=== PATIENT | male | born 1960 | race Caucasian/White ===

== ENCOUNTER → 2017-11-28 16:50 | Outpatient (REF) | payer MEDICAID, SELFPAY ==
[2017-11-28 20:04] LABS: ALT 81 U/L (12-78); AST 71 U/L (15-37); Albumin 3.6 g/dL (3.4-5.0); Alkaline Phosphatase 73 U/L (46-116); Anion Gap 7.6 mmol/L (3-11); BUN 9 mg/dL (7-18); Bilirubin, Total 0.3 mg/dL (0.2-1.0); CO2 27.4 mmol/L (21.0-32.0); CREATININE 0.96 mg/dL (0.70-1.30); Chloride 104 mmol/L (98-107); Glucose 100 mg/dL (70-100); Potassium 4.6 mmol/L (3.5-5.1); Sodium 139 mmol/L (136-145); Total Protein 7.6 g/dL (6.4-8.2)
== END ==
LOC: NCHCN 16:50
PROVIDERS: PCP Internal Medicine; Visit Provider Physician Assistant Medical
DX: R60.9 Edema, unspecified (principal); Z87.898 Personal history of other specified conditions
CPT/HCPCS: 80053

== ENCOUNTER 2017-12-16 15:53 | Outpatient (REF) | payer MEDICAID, SELFPAY ==
[2017-12-16 19:37] LABS: Iron 79 ug/dL (50-175); Total Iron Binding Capacity 325 ug/dL (250-450); Transferrin Sat 24 % (20-55)
[2017-12-16 19:48] LABS: Ferritin 222 ng/mL (8-388)
[2017-12-18 10:23] LABS: Hepatitis C Ab w Rflx HCV PCR Reactive (NEGAT)
== END 2017-12-16 16:13 ==
LOC: NCHCN 15:53
PROVIDERS: PCP Internal Medicine; Visit Provider Internal Medicine
DX: R60.9 Edema, unspecified (principal); I48.2 Chronic atrial fibrillation; F41.1 Generalized anxiety disorder; M17.9 Osteoarthritis of knee, unspecified; K76.0 Fatty (change of) liver, not elsewhere classified
CPT/HCPCS: 86803; 82728; 83540; 83550; 87522

== ENCOUNTER 2019-01-07 15:13 | Outpatient (REF) | payer MEDICAID, SELFPAY ==
[2019-01-07 20:21] LABS: HCT 42.9 % (40.0-50.0); HGB 14.5 g/dL (13.5-17.5); Mean Corp. HGB Concentration 33.8 g/dL (32.0-36.0); Mean Corpuscular Hemoglobin 31.2 pg (27.0-33.0); Mean Corpuscular Volume 92.3 fL (80-95); Mean Platelet Volume 11.3 fL (8.0-11.0); Platelet Count 235 x1000/uL (130-400); RBC 4.65 m/cumm (4.50-6.00); RBC Distribution Width 14.5 % (11.8-14.1); White Blood Cell Count 10.52 k/cumm (4.4-10.8)
[2019-01-07 20:45] LABS: ALT 73 U/L (16-63); AST 57 U/L (15-37); Alkaline Phosphatase 58 U/L (46-116); Anion Gap 12.2 mmol/L (3-11); BUN 15 mg/dL (7-18); Bilirubin, Total 0.2 mg/dL (0.2-1.0); CO2 24.8 mmol/L (21.0-32.0); CREATININE 1.57 mg/dL (0.70-1.30); Calcium 9.7 mg/dL (8.5-10.1); Chloride 102 mmol/L (98-107); Glucose 144 mg/dL (70-100); LDL CHOLESTEROL 146 mg/dL (<100); Potassium 4.3 mmol/L (3.5-5.1); Sodium 139 mmol/L (136-145); TSH 3.57 uIU/mL (0.36-3.74); Total Protein 8.1 g/dL (6.4-8.2)
[2019-01-09 10:13] LABS: HIV-1/2 Ag & Ab Screen Negative (NEGAT)
== END 2019-01-07 15:33 ==
LOC: NCHCN 15:13
PROVIDERS: PCP Internal Medicine; Visit Provider Internal Medicine
DX: B19.20 Unspecified viral hepatitis C without hepatic coma (principal); Z00.00 Encounter for general adult medical examination without abnormal findings; Z11.4 Encounter for screening for human immunodeficiency virus [HIV]
CPT/HCPCS: 80053; 83721; 85027; 86803; 87389; 84443; 87522

== ENCOUNTER 2021-08-14 20:43 | Outpatient (REF) | payer MEDICAID, SELFPAY ==
[2021-08-14 22:14] LABS: HGB 14.2 g/dL (13.5-17.5); MCH 30.9 pg (27.0-33.0); MCHC 32.3 % (32.0-36.0); MCV 96 fL (80-95); Platelet Count 248 10^3/uL (130-400); RDW 12.7 % (11.8-14.1); RDW-SD 45.1 fL; WBC 12.31 10^3/uL (4.4-10.8)
[2021-08-14 22:32] LABS: ALT 28 U/L (16-63); AST 25 U/L (15-37); Alkaline Phosphatase 64 U/L (46-116); Anion Gap 8.9 mmol/L (3-11); BUN 16 mg/dL (7-18); Bilirubin, Total 0.3 mg/dL (0.2-1.0); CO2 29.1 mmol/L (21.0-32.0); CREATININE 1.2 mg/dL (0.70-1.30); Calcium 10.5 mg/dL (8.5-10.1); Calculated LDL 135 mg/dL (<100); Chloride 103 mmol/L (98-107); Cholesterol 228 mg/dL (<200); Glucose 98 mg/dL (74-106); HDL Cholesterol 44 mg/dL (40-60); Potassium 4.3 mmol/L (3.5-5.1); Sodium 141 mmol/L (136-145); Total Protein 8.1 g/dL (6.4-8.2); Triglyceride 249 mg/dL (<150)
[2021-08-16 12:26] LABS: Hepatitis C Ab w Rflx HCV PCR Reactive (Negative)
[2021-08-17 13:15] LABS: HCV RNA Detection Quantitative 5690000 IU/mL (Undetected); HCV RNA Qualitative Detected (Undetected)
== END 2021-08-14 20:44 | disposition home or self-care (01) ==
LOC: NCHCN 20:43
PROVIDERS: PCP Internal Medicine; Visit Provider Nurse Practitioner Family
DX: B19.20 Unspecified viral hepatitis C without hepatic coma (principal)
CPT/HCPCS: 80053; 80061; 85027; 86803; 87522

== ENCOUNTER 2022-08-20 16:26 | Outpatient (REF) | payer MEDICAID, SELFPAY ==
[2022-08-20 20:01] LABS: HCT 41.5 % (40.0-50.0); HGB 13.9 g/dL (13.5-17.5); MCH 31.1 pg (27.0-33.0); MCHC 33.5 % (32.0-36.0); MCV 93 fL (80-95); MPV 10.4 fL (8.0-11.0); Platelet Count 214 10^3/uL (130-400); RBC 4.47 10^6/uL (4.36-5.78); RDW-SD 44.5 fL; WBC 7.93 10^3/uL (4.4-10.8)
[2022-08-20 20:08] LABS: ALT 55 U/L (16-63); AST 51 U/L (15-37); Albumin 3.8 g/dL (3.4-5.0); Alkaline Phosphatase 71 U/L (46-116); Anion Gap 6.6 mmol/L (3-11); BUN 13 mg/dL (7-18); Bilirubin, Total 0.3 mg/dL (0.2-1.0); CO2 27.4 mmol/L (21.0-32.0); CREATININE 1.3 mg/dL (0.70-1.30); Calcium 9.5 mg/dL (8.5-10.1); Chloride 103 mmol/L (98-107); Glucose 101 mg/dL (74-106); Potassium 4.3 mmol/L (3.5-5.1); Sodium 137 mmol/L (136-145); Total Protein 7.9 g/dL (6.4-8.2)
[2022-08-22 10:46] LABS: Hepatitis C Ab w Rflx HCV PCR Reactive (Negative)
[2022-08-23 13:05] LABS: HCV RNA Detection Quantitative 4000000 IU/mL (Undetected); HCV RNA Qualitative Detected (Undetected)
== END 2022-08-20 16:27 | disposition home or self-care (01) ==
LOC: NCHCN 16:26
PROVIDERS: PCP Internal Medicine; Visit Provider Nurse Practitioner Family
DX: I48.20 Chronic atrial fibrillation, unspecified (principal); B19.20 Unspecified viral hepatitis C without hepatic coma
CPT/HCPCS: 80053; 85027; 86803; 87522